=== PATIENT | female | born 1990 | race Hispanic/Latino ===

== ENCOUNTER → 2023-02-05 | Emergency (ER) | payer OTHER ==
[~2023-02-05] MED LIST: NA CHLORIDE 0.9% 1,000 ML ONE
[2023-02-05 19:22] LABS: Hematocrit 39.3 % (36.0-45.0); Lymphocytes % 20.9 % (15.3-44.8); MCV 87.5 fL (80-100); MPV 8.5 fL (7.6-11.3); Platelets 397 thou/uL (152-406); RBC Red Blood Cell Count 4.49 M/uL (3.86-4.86)
[2023-02-05 19:34] LABS: SARS-CoV-2 Antigen Rapid Res Negative (Negative)
--- NOTE | 2023-02-05 20:05 | RAD REPORT ---
EXAM DESCRIPTION: Yvon Single View02/05/2023 7:47 pm CLINICAL HISTORY: Chest pain COMPARISON: none FINDINGS: Mild bilateral pulmonary opacities Heart probably is normal size IMPRESSION: Mild bilateral pulmonary opacities may indicate pneumonia or pneumonitis
[2023-02-05 21:47] LABS: ALT/SGPT 57 U/L (13-56); AST/SGOT 31 U/L (15-37); Albumin 3.7 g/dL (3.4-5.0); Alkaline Phosphatase 59 U/L (45-117); BUN Blood Urea Nitrogen 13 mg/dL (7-18); Bicarbonate 27 mEq/L (21-32); Bilirubin Total 0.2 mg/dL (0.2-1.0); Glomerular Filtration Rate 102 ml/min (=/>90); Glucose Level 90 mg/dL (74-106); Magnesium 2.2 mg/dL (1.6-2.4); NT PRO-BNP 54 pg/mL (<125); Potassium 3.6 mEq/L (3.5-5.1); Sodium Level 138 mEq/L (136-145); Troponin High Sensitivity 3.4 pg/mL (<58.9)
[2023-02-05 21:55] LABS: Bilirubin Direct < 0.1 mg/dL (0-0.2); Bilirubin Indirect, Calculated ND mg/dL (0.2-0.8)
--- NOTE | 2023-02-05 22:11 | EDPHYS ---
Physician Documentation [facility] Name: Rosa Mcclure Age: 32 yrs Sex: Female : 1990 Arrival Date: 02/05/2023 Time: 18:13 Bed 8 Private MD: ED Physician Raghu Klein HPI: 02/05 18:43 This 32 yrs old Female presents to ER via Ambulatory with complaints of chest sb4 pain. 18:43 The patient or guardian reports chest pain that is located primarily in the anterior sb4 chest wall, bilaterally. The pain radiates to Associated signs and symptoms: Pertinent positives: dizziness, headache, shortness of breath. The chest pain is described as a pressure. Modifying factors: The symptoms are alleviated by nothing. the symptoms are aggravated by nothing. The patient has experienced a previous episode. The patient has not recently seen a physician. chest pain, sob, headache that began this morning. also endorses mild cough. had previous episode a few weeks ago, saw [place] [facility] and had echocardiogram but does not know the results. 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 - Social history:: Smoking status: Patient denies any tobacco usage or history of. ROS: 18:47 Constitutional: Negative for fever, chills, and weight loss, sb4 18:47 Cardiovascular: Positive for chest pain, 18:47 Respiratory: Positive for shortness of breath, 18:47 Neuro: Positive for headache, 18:47 All other systems are negative, Exam: 18:47 Constitutional: This is a well developed, well nourished patient who is awake, alert, sb4 and in no acute distress. Head/Face: Normocephalic, atraumatic. Eyes: Extra-ocular motions intact. Periorbital areas with no swelling, redness, or edema. ENT: Mucous membranes moist. Cardiovascular: Regular rate and rhythm with a normal S1 and S2. Respiratory: Lungs have equal breath sounds bilaterally, clear to auscultation and percussion. No rales, rhonchi or wheezes noted. No increased work of breathing, no retractions or nasal flaring. Abdomen/GI: Soft, non-tender, no distension. Skin: Warm, dry with normal turgor. Normal color with no rashes, no lesions, and no evidence of cellulitis. MS/ Extremity: Pulses equal, no cyanosis. Neurovascular intact. Full, normal range of motion. Neuro: Awake and alert, GCS 15, oriented to person, place, time, and situation. Motor strength 5/5 in all extremities. Sensory grossly intact. Vital Signs: 18:29 BP 150 / 79; Pulse 60; Resp 17; Temp 97; Pulse Ox 100% ; Weight 95.25 kg; Height 5 ft. jl7 3 in. ; Pain 7/10; 19:11 BP 121 / 80; Pulse 56; Resp 16 S; Pulse Ox 100% on R/A; jw7 20:21 BP 120 / 81; Pulse 63; Resp 16; Pulse Ox 96% on R/A; jb4 21:00 BP 111 / 52; Pulse 53; Resp 16; Pulse Ox 97% on R/A; jb4 22:31 BP 122 / 66; Pulse 56; Resp 16; Pulse Ox 100% on R/A; jb4 18:29 Body Mass Index 37.20 (95.25 kg, 160.02 cm) jl7 18:29 Pain Scale: Adult jl7 MDM: 18:20 Patient medically screened. sb4 18:47 Differential diagnosis: anxiety, chest wall pain, costochondritis, esophagitis, sb4 pleurisy, pneumonia, covid, flu, bronchitis, pneumonia. 21:56 Data reviewed: vital signs, nurses notes, lab test result(s), EKG, radiologic studies, sb4 and as a result, I will discharge patient. Consideration of Admission/Observation Escalation of care including admission/observation considered. Counseling: I had a detailed discussion with the patient and/or guardian regarding the historical points, exam findings, and any diagnostic results supporting the discharge/admit diagnosis, lab results, radiology results, the need for outpatient follow up, for definitive care, to return to the emergency department if symptoms worsen or persist or if there are any questions or concerns that arise at home. 02/05 18:32 Order name: Basic Metabolic Panel; Complete Time: 22:08 sb4 12/23 18:32 Order name: CBC with Diff; Complete Time: 19:39 sb4 02/05 18:32 Order name: D-Dimer; Complete Time: 19:25 sb4 02/05 18:32 Order name: LFT's; Complete Time: 22:08 sb4 02/05 18:32 Order name: Magnesium; Complete Time: 22:08 sb4 02/05 18:32 Order name: NT PRO-BNP; Complete Time: 22:08 sb4 02/05 18:32 Order name: Troponin HS; Complete Time: 22:08 sb4 02/05 18:32 Order name: SARS RAPID; Complete Time: 19:34 sb4 02/05 18:32 Order name: Flu; Complete Time: 19:40 sb4 02/05 19:14 Order name: Thyroid Stimulating Hormone; Complete Time: 22:08 EDMS 02/05 21:57 Order name: T4 Free; Complete Time: 22:08 EDMS 02/05 18:32 Order name: XRAY Chest (1 view); Complete Time: 20:11 sb4 02/05 18:32 Order name: EKG; Complete Time: 18:33 sb4 02/05 18:32 Order name: Cardiac monitoring; Complete Time: 19:08 sb4 02/05 18:32 Order name: EKG - Nurse/Tech; Complete Time: 19:21 sb4 02/05 18:32 Order name: IV Saline Lock; Complete Time: 19:22 sb4 02/05 18:32 Order name: Labs collected and sent; Complete Time: 19:09 sb4 02/05 18:32 Order name: O2 Per Protocol; Complete Time: 19:09 sb4 02/05 18:32 Order name: O2 Sat Monitoring; Complete Time: 19:09 sb4 02/05 19:22 Order name: Misc. Order: recollect green top; Complete Time: 20:03 jr12 EC:33 Rate is 61 beats/min. Rhythm is regular, Sinus arrythmia. QRS [place] is Normal. TN sb4 interval is normal at 142 msec. QRS interval is normal at 94 msec. QT interval is normal at 414 msec. No Q waves. T waves are Normal. No ST changes noted. Clinical impression: Normal ECG. Interpreted by me. Reviewed by me. Administered Medications: 21:55 Drug: NS 0.9% IV 1000 ml IV at 1 bolus Per protocol; 1000 mL bolus Route: IV; Rate: 1 jb4 bolus; Site: left antecubital; Disposition Summary: 02/05/23 22:10 Discharge Ordered Notes: Location: Home sb4 Problem: new sb4 Symptoms: have improved sb4 Condition: Stable sb4 Diagnosis - Pneumonia, unspecified organism sb4 - Elevated TSH sb4 Followup: sb4 - With: Yazan Sneed, DO - When: 2 - 3 days - Reason: Further diagnostic work-up, Recheck today's complaints, Re-evaluation by your physician Discharge Instructions: - Discharge Summary Sheet sb4 - Hypothyroidism sb4 - Community-Acquired Pneumonia, Adult sb4 Forms: - Medication Reconciliation Form sb4 - Thank You Letter sb4 - Antibiotic Education sb4 - Prescription Opioid Use sb4 - Patient Portal Instructions sb4 - Leadership Thank You Letter sb4 Prescriptions: - azithromycin 250 mg Oral tablet - take 1 dose pack ORAL route as directed on dose pack For 250 mg dose pack: take sb4 500 mg today (day 1), then 250 mg for 4 days (days 2-5); 1 Pack; Refills: 0, Product Selection Permitted - cefpodoxime 100 mg Oral Tablet - take 1 tablet ORAL route every 12 hours for 10 days take with food; 20 tablet; sb4 Refills: 0, Product Selection Permitted Signatures: Dispatcher [employer] Rich Simmons, RN RN [email or web address] Elis Blount RN RN [email or web address] Ruthie Hanna, PAShayan PAShayan sb4 Darlene, Ai jr12 Corrections: (The following items were deleted from the chart) 18:30 18:30 Allergies: No Known Allergies; melissa torres 19:14 18:47 THYROID STIMULAT HORMONE+C.LAB.BRZ ordered. EDMS EDMS
--- NOTE | 2023-02-05 22:11 | ER ---
Nurse's Notes [facility] Name: Rosa Mcclure Age: 32 yrs Sex: Female : 1990 Arrival Date: 02/05/2023 Time: 18:13 Bed 8 Private MD: Diagnosis: Pneumonia, unspecified organism;Elevated TSH Presentation: 02/05 18:29 Chief complaint: Patient states: CP, SOB, CONTE, since this morning. Happened 3 weeks ago, jl7 sees cardiology in [place], does not know results of tests. Coronavirus screen: At this time, the client does not indicate any symptoms associated with coronavirus-19. Ebola Screen: No symptoms or risks identified at this time. Initial Sepsis Screen: Does the patient meet any 2 criteria? No. Patient's initial sepsis screen is negative. Does the patient have a suspected source of infection? No. Patient's initial sepsis screen is negative. Risk Assessment: Do you want to hurt yourself or someone else? Patient reports no desire to harm self or others. Onset of symptoms was February 05, 2023. 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 - Social history:: Smoking status: Patient denies any tobacco usage or history of. Screenin:12 [facility] ED Fall Risk Assessment (Adult) History of falling in the last 3 months, 7 including since admission No falls in past 3 months (0 pts) Score/Fall Risk Level 0 - 2 = Low Risk Oriented to surroundings, Maintained a safe environment. Abuse screen: Denies threats or abuse. Denies injuries from another. Nutritional screening: No deficits noted. Tuberculosis screening: No symptoms or risk factors identified. Assessment: 19:09 General: Appears in no apparent distress. comfortable, Behavior is calm, cooperative. jw7 Pain: Complains of pain in chest Pain radiates to left arm Pain currently is 6 out of 10 on a pain scale. Quality of pain is described as pressure, Pain began suddenly, Is continuous. Neuro: Lopez Agitation-Sedation Scale (RASS): 0 - Alert and Calm Level of Consciousness is awake, alert, Oriented to person, place, time, situation. Cardiovascular: Capillary refill < 3 seconds Clubbing of nail beds is absent JVD is absent Patient's skin is warm and dry. Respiratory: Airway is patent Trachea midline Respiratory effort is even, unlabored, Respiratory pattern is regular, symmetrical. GI: No deficits noted. No signs and/or symptoms were reported involving the gastrointestinal system. : No deficits noted. No signs and/or symptoms were reported regarding the genitourinary system. EENT: No deficits noted. No signs and/or symptoms were reported regarding the EENT system. Derm: Skin is intact, is healthy with good turgor, Skin is dry, Skin is normal, Skin temperature is warm. Musculoskeletal: No deficits noted. No signs and/or symptoms reported regarding the musculoskeletal system. 20:08 Reassessment: Patient appears in no apparent distress at this time. Patient and/or jb4 family updated on plan of care and expected duration. Pain level reassessed. Patient is alert, oriented x 3, equal unlabored respirations, skin warm/dry/pink. 21:25 Reassessment: Patient appears in no apparent distress at this time. Patient and/or jb4 family updated on plan of care and expected duration. Pain level reassessed. Patient is alert, oriented x 3, equal unlabored respirations, skin warm/dry/pink. 22:31 Reassessment: Patient appears in no apparent distress at this time. Patient and/or jb4 family updated on plan of care and expected duration. Pain level reassessed. Patient is alert, oriented x 3, equal unlabored respirations, skin warm/dry/pink. Vital Signs: 18:29 BP 150 / 79; Pulse 60; Resp 17; Temp 97; Pulse Ox 100% ; Weight 95.25 kg; Height 5 ft. jl7 3 in. ; Pain 7/10; 19:11 BP 121 / 80; Pulse 56; Resp 16 S; Pulse Ox 100% on R/A; jw7 20:21 BP 120 / 81; Pulse 63; Resp 16; Pulse Ox 96% on R/A; jb4 21:00 BP 111 / 52; Pulse 53; Resp 16; Pulse Ox 97% on R/A; jb4 22:31 BP 122 / 66; Pulse 56; Resp 16; Pulse Ox 100% on R/A; jb4 18:29 Body Mass Index 37.20 (95.25 kg, 160.02 cm) jl7 18:29 Pain Scale: Adult jl7 ED Course: 18:16 Patient arrived in ED. im 18:20 Ruthie Hanna PA-C is PHCP. sb4 18:20 Raghu Klein MD is Attending Physician. sb4 18:30 Triage completed. jl7 18:30 Arm band placed on right wrist. EKG completed in triage. Results shown to MD. jl7 19:09 Initial lab(s) drawn, by me, sent to lab. Missed attempt(s): 22 gauge in right jw7 antecubital area. Bleeding controlled, band aid applied, catheter tip intact. 19:12 Patient has correct armband on for positive identification. Placed in gown. Bed in low jw7 position. Call light in reach. Client placed on continuous cardiac and pulse oximetry monitoring. NIBP monitoring applied. 19:12 Patient maintains SpO2 saturation greater than 95% on room air. jw7 19:49 XRAY Chest (1 view) In Process Unspecified. EDMS 19:55 Inserted saline lock: 20 gauge in left antecubital area, using aseptic technique. Blood oe collected. 22:10 Yazan Sneed DO is Referral Physician. sb4 22:31 No provider procedures requiring assistance completed. IV discontinued, intact, jb4 bleeding controlled, No redness/swelling at site. Pressure dressing applied. Administered Medications: 21:55 Drug: NS 0.9% IV 1000 ml IV at 1 bolus Per protocol; 1000 mL bolus Route: IV; Rate: 1 jb4 bolus; Site: left antecubital; Outcome: 22:10 Discharge ordered by MD. sb4 22:31 Discharged to home ambulatory, with family, jb4 22:31 Condition: stable 22:31 Discharge instructions given to patient, Instructed on discharge instructions, follow up and referral plans. medication usage, Demonstrated understanding of instructions, follow-up care, medications, Prescriptions given X 2, 22:33 Patient left the ED. jb4 Signatures: Dispatcher [employer] EDMS Rich Martinez, QUINCY RN jb4 James Saldaña Jahala, RN RN jl7 Mayuri Medina RN RN jw7 Ruthie Hanna PA-C PAShayan sb4 Noemi Rojas Corrections: (The following items were deleted from the chart) 18:30 18:30 Allergies: No Known Allergies; jl7 jl7
[2023-02-06 00:30] VITALS: TEMP 97; O2SAT 100
[2023-02-06 00:47] VITALS: BP 122/66
== END ==
LOC: ER 18:13
DX: J18.9 Pneumonia, unspecified organism (principal); R94.6 Abnormal results of thyroid function studies; Z11.52 Encounter for screening for COVID-19; Z88.0 Allergy status to penicillin
CPT/HCPCS: 85025; 80048; 36415; 83735; 85379; 80076; 84443; 84484; 84439; 83880; 87804 ×2; 71045; 99285; 87811; J7030; 93005

== ENCOUNTER 2024-03-09 21:23 | Emergency (ER) | payer OTHER, SELFPAY ==
--- OUTSIDE RECORDS SUMMARY | 2024-03-09 21:26 | XMS REPORT | Continuity of Care Document ---
Author Name Unknown Address [address] [facility] [address] [place] [address] [facility] thconnect Address [address] [facility] 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 Name Role Phone LETI PAULA Primary Care Physician Unavailab le RAF BOOTH Attending Clinician Unavailable Raf Booth MD Attending Clinician [phone] RAF BOOTH Admitting Clinician Unavailable Allergies, Adverse Reactions, Alerts Allergy Name Allergy Type Status Severity Reaction(s) Onset Date Inactive Date Treating Clinician Comments Source NO KNOWN ALLERGIE S Drug Class Active [facility] Social History Social Habit Start Date Stop Date Quantity Comments Source Sexual orientation [facility] Sex Assigned At 1990 00:00:00 1990 00:00:00 [facility] Smoking Status Start Date Stop Date Source Tobacco smoking consumption unknown [facility] Encounters Start Date/Time End Date/Time Encounter Type Admission Type Attending Clinicians Care Facility Care Department Encounter ID Source 2023-02-09 09:19:38 2023-02-09 09:19:38 Outpatient [facility] [id number] Robin F Alden 2023-02-08 14:05:29 2023-02-08 14:05:29 Outpatient [facility] [id number] Robin Payton Alden 2023-01-21 07:00:00 2023-01-21 23:59:00 Outpatient RAF WILSON [facility] [id number] [facility] 2023-01-21 07:00:00 2023-01-21 23:59:00 Hospital Encounter Raf Booth [facility] [id number] [facility] 2023-01-18 11:08:42 2023-01-18 11:08:42 Outpatient [facility] [id number] Robin Ruano Results Test Description Test Time Test Comments Results Result Co mments Source FREE T4 (THYROXINE)2023-02-10 05:32:29* Test Item Value Reference Range Interpretation Comme nts FREE T4 (THYROXINE) (test co de = 2823) 1.16 NG/DL 0.80-1.90 TSH, THIRD [id number] 05:32:29* Test Item Value Reference Range Interpretation Comme nts TSH, THIRD GENERATION (test code = 2821) 4.160 UIU/ML 0.400-4.100 H UNLESS OTHERWISE INDICATED, ALL TESTING PERFORMED AT [facility] [address] [place] [address] SENIOR COMPENSATION ANALYST: JOSE LUIS WILSON M.D. CLIA NUMBER [id number] [facility] [place]. [id number] HEMOGLOBIN [id number] 05:27:22* Test Item Value Reference Range Interpretation Comme nts HEMOGLOBIN A1c (test code = 94625) 5.2 % 4.2-5.6 LIPID [id number] 04:46:19* Test Item Value Reference Range Interpretation Comme nts CHOLESTEROL (test code = 2210) 175 MG/DL <200 TRIGLYCERIDES (test code = 2232) 84 MG/DL <150 HDL CHOLESTEROL (test code = 2220) 57 MG/DL >39 CALC LDL CHOL (test code = 2237) 101 MG/DL <100 H NOTE: CALCULATED LDL IS BASED ON CHRISTIANO-SOTO METHOD WHICHINCLUDES ADJUSTABLE TRIGLYCERIDE:VLDL CHOLESTEROL RATIO.THIS FACTOR VARIES BY MEASURED TRIGLYCERIDE AND NON-HDLCHOLESTEROL CONCENTRATIONS WITH INCREASED CALCULATED LDL SEENIN HIGHER TRIGLYCERIDE OR LOWER NON-HDL SPECIMENS. FOR MOREINFORMATION, SEE CLIENT ANNOUNCEMENT AT [email or web address] RISK RATIO LDL/HDL (test code = 2238) 1.77 RATIO <3.22 COMPREHENSIVE METABOLIC [id number] 04:46:19* Test Item Value Reference Range Interpretation Comme nts GLUCOSE (test code = 2216) 77 MG/DL 70-99 BUN (test code = 2207) 10 MG/DL 6-20 CREATININE (test code = 2213) 0.67 MG/DL 0.60-1.30 eGFR (2020 CKD-EPI) (test code = 64110) 118 ML/MIN/1.73 >60 CALC BUN/CREAT (test code = 2234) 15 RATIO 6-28 SODIUM (test code = 2230) 140 MEQ/L 133-146 POTASSIUM (test code = 2227) 4.8 MEQ/L 3.5-5.4 CHLORIDE (test code = 2214) 100 MEQ/L 95-107 CARBON DIOXIDE (test code = 2205) 28 MEQ/L 19-31 CALCIUM (test code = 2208) 10.5 MG/DL 8.5-10.5 PROTEIN, TOTAL (test code = 2228) 7.9 G/DL 6.1-8.3 ALBUMIN (test code = 2200) 4.5 G/DL 3.5-5.2 CALC GLOBULIN (test code = 2240) 3.4 G/DL 1.9-3.7 CALC A/G RATIO (test code = 2233) 1.3 RATIO 1.0-2.6 BILIRUBIN, TOTAL (test code = 2206) 0.3 MG/DL <=1.2 ALKALINE PHOSPHATASE (test code = 2203) 71 U/L 40-114 AST (test code = 2217) 19 U/L 9-40 ALT (test code = 221) 21 U/L 5-40 UNLESS OTHERWISE INDICATED, ALL TESTING PERFORMED AT [facility] [address] [place] [address] SENIOR COMPENSATION ANALYST: JOSE LUIS WILSON M.D. CLIA NUMBER [id number] [facility] [place]. [id number] CBC W/AUTO DIFF WITH [id number] 03:54:12* Test Item Value Reference Range Interpretation Comme nts WBC (test code = 1001) 7.0 K/UL 3.5-11.0 RBC (test code = 1002) 4.54 M/UL 3.80-5.40 HEMOGLOBIN (test code = 1003) 13.3 G/DL 11.5-15.5 HEMATOCRIT (test code = 1004) 40.2 % 34.0-45.0 MCV (test code = 1005) 88.5 fL 80.0-99.0 MCH (test code = 1006) 29.3 PG 25.0-33.0 MCHC (test code = 1007) 33.1 G/DL 31.0-36.0 RDW (test code = 1038) 12.4 % 11.5-15.0 NEUTROPHILS (test code = 1008) 64.3 % LYMPHOCYTES (test code = 1010) 28.1 % MONOCYTES (test code = 1011) 5.0 % EOSINOPHILS (test code = 1012) 1.9 % BASOPHILS (test code = 1013) 0.6 % IMMATURE GRANULOCYTES (test code = 1036) 0.1 % NUCLEATED RBCS (test code = 1065) 0.0 /100 WBC'S See_Comment [Automated [employer] ge] The system which generated this result transmitted reference range: 0.0. The reference range was not used to interpret this result as normal/abnormal. PLATELET COUNT (test code = 1015) 387 K/UL 130-400 ABSOLUTE NEUTROPHILS (test code = 1066) 4.50 K/UL 1.50-7.50 ABSOLUTE LYMPHOCYTES (test code = 1067) 1.97 K/UL 1.00-4.00 ABSOLUTE MONOCYTES (test code = 1068) 0.35 K/UL 0.20-1.00 ABSOLUTE EOSINOPHILS (test code = 1040) 0.13 K/UL 0.00-0.50 ABSOLUTE BASOPHILS (test code = 1069) 0.04 K/UL 0.00-0.20 ABS IMMATURE GRANULOCYTES (test code = 1020) 0.01 K/UL 0.00-0.10 ABS NUCLEATED RBCS (test code = 30564) 0.00 K/UL 0.00-0.11
--- NOTE | 2024-03-09 21:43 | EDPHYS ---
Physician Documentation [facility] Name: Rosa Mcclure Age: 34 yrs Sex: Female : 1990 Arrival Date: 03/09/2024 Time: 21:23 Bed IW3 Private MD: GARCIA Physician Raghu Klein HPI: 03/09 22:14 This 34 yrs old Female presents to ER via Ambulatory with complaints of Rash, kb Allergic Reaction. 22:14 Pt is a 34 year old female who presents for rash to bilateral upper extremities that kb started yesterday. States she isn't sure what the rash is from. Reports itching. . [employer] LAB[employer]ER: 21:34 LMP 02/2024, unknown cp4 Historical: - Allergies: 21:34 PENICILLINS; cp4 - Immunization history:: Adult Immunizations up to date. - Infectious Disease History:: Denies. - Social history:: Smoking status: Patient denies any tobacco usage or history of. ROS: 22:14 Constitutional: As per HPI kb Exam: 22:14 Constitutional: This is a well developed, well nourished patient who is awake, alert, kb and in no acute distress. Head/Face: Normocephalic, atraumatic. ENT: Moist Mucous membranes Cardiovascular: Regular rate Respiratory: Respirations even and unlabored. No increased work of breathing. Talking in full sentences MS/ Extremity: Pulses equal, no cyanosis. Neurovascular intact. Full, normal range of motion. Neuro: Awake and alert, GCS 15, oriented to person, place, time, and situation. 22:14 Skin: rash a mild rash is noted, consistent with contact dermatitis, on the right arm and left arm, Vital Signs: 21:34 BP 139 / 94; Pulse 62; Resp 18; Temp 97.5; Pulse Ox 100% ; Weight 86.18 kg; Height 5 cp4 ft. 5 in. ; Pain 0/10; 21:34 Body Mass Index 31.62 (86.18 kg, 165.1 cm) cp4 21:34 Pain Scale: Adult cp4 MDM: 21:27 Medical Screening Exam initiated kb 22:15 Differential diagnosis: impetigo, allergic reaction, parasite infection. Data reviewed: kb vital signs, nurses notes. Counseling: I had a detailed discussion with the patient and/or guardian regarding the historical points, exam findings, and any diagnostic results supporting the discharge/admit diagnosis, the need for outpatient follow up, a family practitioner, to return to the emergency department if symptoms worsen or persist or if there are any questions or concerns that arise at home. Administered Medications: 22:20 Drug: Famotidine PO 20 mg PO once Route: PO; cp4 22:35 Follow up: Response: No adverse reaction cp4 22:20 Drug: predniSONE PO 40 mg PO once Route: PO; cp4 22:35 Follow up: Response: No adverse reaction cp4 Disposition: 03/10 03:19 Co-signature as Attending Physician, Raghu Klein MD I agree with the assessment and kinjal plan of care. Disposition Summary: 03/09/24 21:43 Discharge Ordered Notes: Location: Home kb Condition: Stable kb Diagnosis - Rash and other nonspecific skin eruption kb Followup: kb - With: Emergency Department - When: As needed - Reason: Worsening of condition Followup: kb - With: Private Physician - When: 2 - 3 days - Reason: Recheck today's complaints, Continuance of care, Re-evaluation by your physician Discharge Instructions: - Discharge Summary Sheet kb - Rash, Adult, [id number] kb - Contact Dermatitis, [id number] kb Forms: - Medication Reconciliation Form kb - Antibiotic Education kb - Prescription Opioid Use kb - Patient Portal Instructions kb - Leadership Thank You Letter kb Prescriptions: - Pepcid 20 mg Oral Tablet - take 1 tablet ORAL route every 12 hours for 5 days; 10 tablet; Refills: 0, kb Product Selection Permitted - Prednisone 20 mg Oral Tablet - take 1 tablet ORAL route once daily for 5 days; 5 tablet; Refills: 0, Product kb Selection Permitted Signatures: Ligia Wilson, FRED ALBA-Raghu Macias MD MD cha Potter, Christina cp4
--- NOTE | 2024-03-09 21:43 | ER ---
Nurse's Notes [facility] Name: Rosa Mcclure Age: 34 yrs Sex: Female : 1990 Arrival Date: 03/09/2024 Time: 21:23 Bed IW3 Private MD: Diagnosis: Rash and other nonspecific skin eruption Presentation: 03/09 21:34 Chief complaint: Patient states: rash on arms that started yesterday. Coronavirus cp4 screen: Client denies travel out of the [place] in the last 14 days. Ebola Screen: Patient negative for fever greater than or equal to 101.5 degrees Fahrenheit, and additional compatible Ebola Virus Disease symptoms Patient denies exposure to infectious person. Patient denies travel to an Ebola-affected area in the 21 days before illness onset. No symptoms or risks identified at this time. Onset: The symptoms/episode began/occurred acutely. Anaphylaxis evaluation, no signs or symptoms of anaphylaxis were noted. Initial Sepsis Screen: Does the patient meet any 2 criteria? No. Patient's initial sepsis screen is negative. Does the patient have a suspected source of infection? No. Patient's initial sepsis screen is negative. Risk Assessment: Do you want to hurt yourself or someone else? Patient reports no desire to harm self or others. Onset of symptoms was March 08, 2023. 21:34 Method Of Arrival: Ambulatory cp4 21:34 Acuity: NIC 5 cp4 Triage Assessment: 21:34 General: Appears in no apparent distress. Behavior is calm, cooperative, appropriate cp4 for age. Pain: Denies pain. [facility]: 21:34 LMP 02/2024, unknown cp4 Historical: - Allergies: 21:34 PENICILLINS; cp4 - Immunization history:: Adult Immunizations up to date. - Infectious Disease History:: Denies. - Social history:: Smoking status: Patient denies any tobacco usage or history of. Screenin:32 [facility] ED Fall Risk Assessment (Adult) History of falling in the last 3 months, cp4 including since admission No falls in past 3 months (0 pts) Confusion or Disorientation No (0 pts) Intoxicated or Sedated No (0 pts) Impaired Gait No (0 pts) Mobility Assist Device Used No (0 pt) Altered Elimination No (0 pt) Score/Fall Risk Level 0 - 2 = Low Risk Oriented to surroundings, Maintained a safe environment, Assessed \T\ reinforced patient's understanding of fall precautions, Hourly rounding (assess needs \T\ fall precautionary measures) done. Abuse screen: Denies threats or abuse. Denies injuries from another. Nutritional screening: No deficits noted. Tuberculosis screening: No symptoms or risk factors identified. Assessment: 22:32 General: Appears in no apparent distress. comfortable, Behavior is calm, cooperative, cp4 appropriate for age. Pain: Denies pain. Neuro: Level of Consciousness is awake, alert, obeys commands, Oriented to person, place, time, situation. Cardiovascular: Patient's skin is warm and dry. Respiratory: Airway is patent Respiratory effort is even, unlabored, Breath sounds are clear bilaterally. GI: No signs and/or symptoms were reported involving the gastrointestinal system. : No signs and/or symptoms were reported regarding the genitourinary system. EENT: No signs and/or symptoms were reported regarding the EENT system. Derm: No signs and/or symptoms reported regarding the dermatologic system. Musculoskeletal: No signs and/or symptoms reported regarding the musculoskeletal system. Vital Signs: 21:34 BP 139 / 94; Pulse 62; Resp 18; Temp 97.5; Pulse Ox 100% ; Weight 86.18 kg; Height 5 cp4 ft. 5 in. ; Pain 0/10; 21:34 Body Mass Index 31.62 (86.18 kg, 165.1 cm) cp4 21:34 Pain Scale: Adult cp4 ED Course: 21:25 Patient arrived in ED. am2 21:27 [facility]C [facility] kb 21:27 Raghu Klein MD is Attending Physician. kb 21:34 Triage completed. cp4 22:32 Patient has correct armband on for positive identification. Provided Education on: rash.cp4 22:32 No provider procedures requiring assistance completed. Patient did not have IV access cp4 during this emergency room visit. 22:35 Arm band placed on right wrist. Patient placed in waiting room. cp4 Administered Medications: 22:20 Drug: Famotidine PO 20 mg PO once Route: PO; cp4 22:35 Follow up: Response: No adverse reaction cp4 22:20 Drug: predniSONE PO 40 mg PO once Route: PO; cp4 22:35 Follow up: Response: No adverse reaction cp4 Medication: 22:32 VIS not applicable for this client. cp4 Outcome: 21:43 Discharge ordered by . noel 22:32 Discharged to home ambulatory, cp4 22:32 Condition: stable 22:32 Discharge instructions given to patient, Instructed on discharge instructions, follow up and referral plans. medication usage, Demonstrated understanding of instructions, follow-up care, medications, Prescriptions given X 2, 22:35 Patient left the ED. cp4 Signatures: Ligia Wilson, PARTH-C SALES DEVELOPMENT CONSULTANT-Rosanne Pickett Christina cp4
[2024-03-09] MEDS ORDERED: predniSONE 20 MG TAB ONE ×2 (22:16→22:17)
[2024-03-09] MEDS ORDERED: FAMOTIDINE 20 MG TAB ONE (22:17)
[2024-03-10 02:48] VITALS: BP 139/94; TEMP 97.5; O2SAT 100
== END 2024-03-09 22:35 | disposition home or self-care (01) ==
LOC: ER 21:23
DX: R21 Rash and other nonspecific skin eruption (principal)
CPT/HCPCS: 99283; J7512 ×2

== ENCOUNTER 2024-04-08 20:23 | Emergency (ER) | payer SELFPAY ==
--- OUTSIDE RECORDS SUMMARY | 2024-04-08 20:26 | XMS REPORT | Continuity of Care Document ---
Author Name Unknown Address [address] [facility] [address] [place] [address] [facility] Address [address] [facility] [address] [place] [address] Care Team Providers Care Heat Seal Operator Name Role Phone LETI PAULA Primary Care Physician Unavailab le RAF BOOTH Attending Clinician Unavailable Raf Booth MD Attending Clinician [phone] RAF BOOTH Admitting Clinician Unavailable Allergies, Adverse Reactions, Alerts Allergy Name Allergy Type Status Severity Reaction(s) Onset Date Inactive Date Treating Clinician Comments Source NO KNOWN ALLERGIE S Drug Class Active [facility] Social History Social Habit Start Date Stop Date Quantity Comments Source Sexual orientation U [facility] Sex Assigned At 1990 00:00:00 1990 00:[birth year]:00 [facility] Smoking Status Start Date Stop Date Source Tobacco smoking consumption unknown [facility] Encounters Start Date/Time End Date/Time Encounter Type Admission Type Attending Clinicians Care Facility Care Department Encounter ID Source 2023-02-09 09:19:38 2023-02-09 09:19:38 Outpatient SFA SFA [id number] Robin F Alden 2023-02-08 14:05:29 2023-02-08 14:05:29 Outpatient SFA SFA [id number] Robin Payton Alden 2023-01-21 07:00:00 2023-01-21 23:59:00 Outpatient RAF WILSON [facility] [id number] [facility] 2023-01-21 07:00:00 2023-01-21 23:59:00 Hospital Encounter Raf Booth [facility] [id number] [facility] 2023-01-18 11:08:42 2023-01-18 11:08:42 Outpatient S[facility] [id number] Robin Ruano Results Test Description Test Time Test Comments Results Result Co mments Source FREE T4 (THYROXINE)2023-02-10 05:32:29* Test Item Value Reference Range Interpretation Comme nts FREE T4 (THYROXINE) (test co de = 2823) 1.16 NG/DL 0.80-1.90 TSH, THIRD [id number] 05:32:29* Test Item Value Reference Range Interpretation Comme nts TSH, THIRD GENERATION (test code = 2821) 4.160 UIU/ML 0.400-4.100 H UNLESS OTHERWISE INDICATED, ALL TESTING PERFORMED AT [facility] [address] [place] [address] REGIONAL DIRECTOR OF FINANCE: JOSE LUIS WILSON M.D. CLIA NUMBER [id number] [place]. [id number] HEMOGLOBIN [id number] 05:27:22* Test Item Value Reference Range Interpretation Comme nts HEMOGLOBIN A1c (test code = 63073) 5.2 % 4.2-5.6 LIPID [id number] 04:46:19* Test Item Value Reference Range Interpretation [...] SPECIMENS. FOR MOREINFORMATION, SEE CLIENT ANNOUNCEMENT AT [email or web address] [email or web address] RATIO LDL/HDL (test code = 2238) 1.77 RATIO <3.22 COMPREHENSIVE METABOLIC [id number] 04:46:19* Test Item Value Reference Range Interpretation Comme nts GLUCOSE (test code = 2216) 77 MG/DL 70-99 BUN (test code = 2207) 10 MG/DL 6-20 CREATININE (test code = 2213) 0.67 MG/DL 0.60-1.30 eGFR (2020 CKD-EPI) (test code = 24594) 118 ML/MIN/1.73 >60 CALC BUN/CREAT (test code [...] TESTING PERFORMED AT [facility] [address] [place] [address] REGIONAL DIRECTOR OF FINANCE: JOSE LUIS WILSON M.D. CLIA NUMBER [id number] [place]. [id number] CBC W/AUTO DIFF WITH [id number] 03:54:12* Test Item Value Reference Range Interpretation [...] = 1065) 0.0 /100 WBC'S See_Comment [Automated MedPlastsa ge] The system which generated this result [...] 0.00-0.10 ABS NUCLEATED RBCS (test code = 18225) 0.00 K/UL 0.00-0.11
[2024-04-08 21:16] LABS: Influenza A Ag Negative; Influenza B Ag Negative
[2024-04-08 21:18] LABS: SARS-CoV-2 Antigen Rapid Res Positive (Negative)
--- NOTE | 2024-04-08 21:42 | RAD REPORT ---
Procedure: Chest Pa And Lat (2 Views) HISTORY: Cough COMPARISON: 2022 FINDINGS: The lungs appear clear of acute infiltrate. No significant pleural effusion noted. The heart is normal size. IMPRESSION: No acute abnormality is displayed.
--- NOTE | 2024-04-08 22:20 | EDPHYS ---
Physician Documentation [facility] Name: Rosa Mcclure Age: 34 yrs Sex: Female : 1990 Arrival Date: 04/08/2024 Time: 20:23 Bed 14 Private MD: ED Physician Balaji Sneed HPI: 04/08 22:58 This 34 yrs old Female presents to ER via Ambulatory with complaints of Flu sb4 Symptoms. 22:58 cough, congestion, sore throat, body aches, fever x 4 days. has been taking tylenol and sb4 nyquil with some relief in symptoms. no shortness of breath, nausea, vomiting, diarrhea, chest pain. 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 - Infectious Disease History:: Denies. - Social history:: Smoking status: Patient/guardian denies using tobacco. ROS: 22:58 Abdomen/GI: Negative for abdominal pain, nausea, vomiting, diarrhea, and constipation, sb4 22:58 Constitutional: Positive for body aches, chills, fatigue, fever, malaise, 22:58 ENT: Positive for sinus congestion, sore throat, 22:58 Respiratory: Positive for cough, 22:58 All other systems are negative, Exam: 22:58 Constitutional: This is a well developed, well nourished patient who is awake, alert, sb4 and in no acute distress. Head/Face: Normocephalic, atraumatic. Eyes: Extra-ocular motions intact. Periorbital areas with no swelling, redness, or edema. ENT: Mucous membranes moist. Cardiovascular: Regular rate and rhythm with a normal S1 and S2. Respiratory: No increased work of breathing, no retractions or nasal flaring. Abdomen/GI: Soft, non-tender, no distension. Skin: Warm, dry with normal turgor. Normal color with no rashes, no lesions, and no evidence of cellulitis. MS/ Extremity: Pulses equal, no cyanosis. Neurovascular intact. Full, normal range of motion. Neuro: Awake and alert, GCS 15, oriented to person, place, time, and situation. Motor strength 5/5 in all extremities. Sensory grossly intact. 22:58 Respiratory: Breath sounds: are clear throughout, Vital Signs: 20:28 BP 122 / 85; Pulse 99; Resp 18; Temp 98.4; Pulse Ox 99% ; iw 21:18 BP 136 / 61; Pulse 91; Resp 20; Pulse Ox 97% on R/A; kj2 22:26 BP 136 / 72; Pulse 88; Resp 20; Pulse Ox 100% on R/A; kj2 MDM: 20:27 Medical Screening Exam initiated sb4 23:00 Data reviewed: vital signs, nurses notes, lab test result(s), radiologic studies, and sb4 as a result, I will discharge patient. Counseling: I had a detailed discussion with the patient and/or guardian regarding the historical points, exam findings, and any diagnostic results supporting the discharge/admit diagnosis, the presence of at least one elevated blood pressure reading (>120/80) during this emergency department visit, lab results, radiology results, the need for outpatient follow up, for definitive care, to return to the emergency department if symptoms worsen or persist or if there are any questions or concerns that arise at home. 04/08 20:32 Order name: COVID-19 Ag + Flu A+B Ag; Complete Time: 21:19 sb4 04/08 21:05 Order name: Group A Streptococcus Rapid Sc; Complete Time: 22:06 EDFL 04/08 22:04 Order name: Throat Culture EDFL 04/08 20:36 Order name: Chest Pa And Lat (2 Views) XRAY; Complete Time: 21:44 sb4 Administered Medications: No medications were administered Disposition Summary: 04/08/24 22:19 Discharge Ordered Notes: Location: Home sb4 Problem: an ongoing problem sb4 Symptoms: are unchanged sb4 Condition: Stable sb4 Diagnosis - SARS-associated coronavirus as the cause of diseases classified elsewhere sb4 Followup: sb4 - With: Emergency Department - When: As needed - Reason: Trouble breathing, Worsening of condition Discharge Instructions: - Discharge Summary Sheet sb4 - 10 Things You Can Do to Manage Your COVID-19 Symptoms at Home - [facility] (08/29/2020) sb4 Forms: - Work release form sb4 - Patient Portal Instructions sb4 - Leadership Thank You Letter sb4 Signatures: Dispatcher [employer] EDNatasha Whitmore, RN RN Ruthie Bowden, NATY PAShayan sb4 Corrections: (The following items were deleted from the chart) 21:05 20:32 Group A Streptococcus Rapid [id number].BRZ ordered. ED EDMS
--- NOTE | 2024-04-08 22:20 | ER ---
Nurse's Notes [facility] Name: Rosa Mcclure Age: 34 yrs Sex: Female : 1990 Arrival Date: 04/08/2024 Time: 20:23 Bed 14 Private MD: Diagnosis: SARS-associated coronavirus as the cause of diseases classified elsewhere Presentation: 04/08 20:28 Chief complaint: Patient states: 4 days of body aches, fever, headache, cough. iw Coronavirus screen: Client presents with at least one sign or symptom that may indicate coronavirus-19. Ebola Screen: No symptoms or risks identified at this time. Initial Sepsis Screen: Does the patient meet any 2 criteria? No. Patient's initial sepsis screen is negative. Does the patient have a suspected source of infection? No. Patient's initial sepsis screen is negative. Risk Assessment: Do you want to hurt yourself or someone else? Patient reports no desire to harm self or others. Onset of symptoms was April 04, 2024. 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 - Infectious Disease History:: Denies. - Social history:: Smoking status: Patient/guardian denies using tobacco. Screenin:52 [facility] ED Fall Risk Assessment (Adult) History of falling in the last 3 months, iw including since admission No falls in past 3 months (0 pts) Confusion or Disorientation No (0 pts) Intoxicated or Sedated No (0 pts) Impaired Gait No (0 pts) Mobility Assist Device Used No (0 pt) Altered Elimination No (0 pt) Score/Fall Risk Level 0 - 2 = Low Risk Oriented to surroundings, Maintained a safe environment. Abuse screen: Denies threats or abuse. Denies injuries from another. Nutritional screening: No deficits noted. Tuberculosis screening: No symptoms or risk factors identified. Assessment: 20:51 General: Appears in no apparent distress. Behavior is calm, cooperative, appropriate iw for age. General: Reports fever for > 3 days. Pain: Complains of pain in all over body and head. Neuro: Level of Consciousness is awake, alert, obeys commands, Oriented to person, place, time, situation, Moves all extremities. Cardiovascular: Patient's skin is warm and dry. Respiratory: Respiratory effort is even, unlabored, Respiratory pattern is regular, symmetrical. Derm: Skin is intact, is healthy with good turgor. Musculoskeletal: Range of motion: intact in all extremities. 21:19 Reassessment: Patient appears in no apparent distress at this time. Patient and/or kj2 family updated on plan of care and expected duration. Pain level reassessed. Patient is alert, oriented x 3, equal unlabored respirations, skin warm/dry/pink. 22:26 Reassessment: Patient appears in no apparent distress at this time. Patient and/or kj2 family updated on plan of care and expected duration. Pain level reassessed. Patient is alert, oriented x 3, equal unlabored respirations, skin warm/dry/pink. Vital Signs: 20:28 BP 122 / 85; Pulse 99; Resp 18; Temp 98.4; Pulse Ox 99% ; iw 21:18 BP 136 / 61; Pulse 91; Resp 20; Pulse Ox 97% on R/A; kj2 22:26 BP 136 / 72; Pulse 88; Resp 20; Pulse Ox 100% on R/A; kj2 ED Course: 20:25 Patient arrived in ED. jj6 20:26 Ruthie Hanna PA-C is PHCP. sb4 20:26 Balaji Sneed MD is Attending Physician. sb4 20:29 Triage completed. iw 20:30 Arm band placed on. iw 21:09 Lorenza Rollins, RN is Primary Nurse. kj2 21:19 Patient has correct armband on for positive identification. Bed in low position. Call kj2 light in reach. Provided Education on: call light. 21:29 Chest Pa And Lat (2 Views) XRAY In Process Unspecified. EDMS 22:48 No provider procedures requiring assistance completed. Patient did not have IV access kj2 during this emergency room visit. Administered Medications: No medications were administered Medication: 20:52 VIS not applicable for this client. iw Outcome: 22:19 Discharge ordered by . sb4 22:48 Discharged to home ambulatory, kj2 22:48 Condition: stable 22:48 Discharge instructions given to patient, Instructed on discharge instructions, follow up and referral plans. Demonstrated understanding of instructions, follow-up care, 22:52 Patient left the ED. kj2 Signatures: Dispatcher [employer] Natasha Jackson, RN RN Yvette Lopez jj6 Ruthie Hanna, PAHemalathaC PAHemalathaC [email or web address] Lorenza Rollins, RN RN kj2 Corrections: (The following items were deleted from the chart) 20:30 20:28 Resp 18bpm; Pulse Ox 99%; Temp 98.4F; oscar moore
[2024-04-08 23:01] VITALS: TEMP 98.4
[2024-04-08 23:05] VITALS: BP 136/72; O2SAT 100
== END 2024-04-08 22:52 | disposition home or self-care (01) ==
LOC: ER 20:23
DX: U07.1 COVID-19 (principal)
CPT/HCPCS: 36415; 71046; 87070; 87428; 99283

== ENCOUNTER 2024-06-17 12:35 | Emergency (ER) | payer OTHER ==
--- OUTSIDE RECORDS SUMMARY | 2024-06-17 12:41 | XMS REPORT | Continuity of Care Document ---
Author Name Unknown Address [address] [facility] [place] [address] Organization [facility] [place] Address [address] [facility]. [address] [place] [address] Care Team Providers Care Floral Assistant Name Role Phone LETIMAYRAFredy Primary Care Physician Unavailab le RAF BOOTH Attending Clinician Unavailable Raf Booth MD Attending Clinician [phone] RAF BOOTH Admitting Clinician Unavailable Allergies, Adverse Reactions, Alerts Allergy Name Allergy Type Status Severity Reaction(s) Onset Date Inactive Date Treating Clinician Comments Source NO KNOWN ALLERGIE S Drug Class Active [facility] Social History Social Habit Start Date Stop Date Quantity Comments Source Sexual orientation U [facility] Sex Assigned At 1990 00:00:00 1990 00:[birth year]:00 [facility] Smoking Status Start Date Stop Date Source Tobacco smoking consumption unknown [facility] Encounters Start Date/Time End Date/Time Encounter Type Admission Type Attending Clinicians Care Facility Care Department Encounter ID Source 2023-02-09 09:19:38 2023-02-09 09:19:38 Outpatient SFA SFA [id number] Robin F Alden 2023-02-08 14:05:29 2023-02-08 14:05:29 Outpatient SFA SFA [id number] Robin Payton Alden 2023-01-21 07:00:00 2023-01-21 23:59:00 Outpatient RAF WILSON [facility] [id number] [facility] 2023-01-21 07:00:00 2023-01-21 23:59:00 Hospital Encounter Raf Booth [facility] [id number] [facility] 2023-01-18 11:08:42 2023-01-18 11:08:[address] [facility] [id number] Robin Ruano Results Test Description Test Time Test Comments Results Result Co mments Source FREE T4 (THYROXINE)2023-02-10 05:32:29* Test Item Value Reference Range Interpretation Comme nts FREE T4 (THYROXINE) (test co de = 2823) 1.16 NG/DL 0.80-1.90 TSH, THIRD [id number] 05:32:29* Test Item Value Reference Range Interpretation Comme nts TSH, THIRD GENERATION (test code = 2821) 4.160 UIU/ML 0.400-4.100 H UNLESS OTHERWISE INDICATED, ALL TESTING PERFORMED AT [facility] [address] [place] [address] PAINT LABORATORY TECHNICIAN: JOSE LUIS WILSON M.D. CLIA NUMBER [id number] [facility] [place]. [id number] HEMOGLOBIN [id number] 05:27:22* Test Item Value Reference Range Interpretation Comme nts HEMOGLOBIN A1c (test code = 58679) 5.2 % 4.2-5.6 LIPID [id number] 04:46:19* Test Item Value Reference Range Interpretation [...] SPECIMENS. FOR MOREINFORMATION, SEE CLIENT ANNOUNCEMENT AT [email or web address] [email or web address] RATIO LDL/HDL (test code = 2238) 1.77 RATIO <3.22 COMPREHENSIVE METABOLIC [id number] 04:46:19* Test Item Value Reference Range Interpretation Comme nts GLUCOSE (test code = 2216) 77 MG/DL 70-99 BUN (test code = 2207) 10 MG/DL 6-20 CREATININE (test code = 2213) 0.67 MG/DL 0.60-1.30 eGFR (2020 CKD-EPI) (test code = 88169) 118 ML/MIN/1.73 >60 CALC BUN/CREAT (test code = 2234) 15 RATIO 6-28 SODIUM (test code = 2230) 140 MEQ/L 133-146 POTASSIUM (test code = 2228) 4.8 MEQ/L 3.5-5.4 CHLORIDE (test code = 2214) 100 MEQ/L 95-107 CARBON DIOXIDE (test code = 6) 28 MEQ/L 19-31 CALCIUM (test code = [...] TESTING PERFORMED AT [facility] [address] [place] [address] PAINT LABORATORY TECHNICIAN: JOSE LUIS WILSON M.D. CLIA NUMBER [id number] [facility] [place] [place]. [id number] CBC W/AUTO DIFF WITH [id number] 03:54:12* Test Item Value Reference Range Interpretation [...] = 1065) 0.0 /100 WBC'S See_Comment [Automated iikoa ge] The system which generated this result [...] 0.00-0.10 ABS NUCLEATED RBCS (test code = 70812) 0.00 K/UL 0.00-0.11
[2024-06-17] MEDS ORDERED: NA CHLORIDE 0.9% 1,000 ML ONE (13:05)
[2024-06-17 13:11] LABS: Absolute Eosinophils 0.1 K/uL (0-0.5); Absolute Monocytes 0.4 K/uL (0.1-1.3); Absolute Neutrophil 4.4 K/uL (1.8-8.0); Basophils % 0.7 % (0-1.3); Eosinophils % 1.1 % (0-4.4); Hemoglobin 13.4 g/dL (12.0-15.0); Lymphocytes % 28.7 % (15.3-44.8); MCH 29.8 pg (27.0-35.0); MCHC 34.4 g/dL (32.0-36.0); MCV 86.6 fL (80-100); MPV 8.3 fL (7.6-11.3); Monocytes % 5.6 % (3.3-12.3); Neutrophils % 63.9 % (41.7-73.7); Nucleated Red Blood Cells % 0.1 % (0-0); Platelets 398 thou/uL (152-406); Red Cell Distribution Width 13.4 % (12.1-15.2)
[2024-06-17 13:25] LABS: PT Prothrombin Time 12.2 SECONDS (10-13.0); Protime INR 1.07
[2024-06-17 13:28] LABS: Specific Gravity 1.019 (1.005-1.030)
[2024-06-17 13:29] LABS: Specific Gravity 1.019 (1.005-1.030); Sqamous Epithelial <5 /HPF (None Seen); Urine Bacteria <20 /HPF (<20); Urine Bilirubin NEGATIVE (Negative); Urine Blood Negative (Negative); Urine Clarity Clear (Clear); Urine Color Light-Yellow (Yellow); Urine Crystals Unidentified Few /HPF (None Seen); Urine Culture Reflex Order REFLEXED; Urine Glucose NEGATIVE (Negative); Urine Ketones NEGATIVE (Negative); Urine Microscopic Reflex YN ORDER UMIC; Urine Mucus Slight /HPF (None Seen); Urine Nitrite NEGATIVE (Negative); Urine Protein NEGATIVE (Negative); Urine RBC <5 /HPF (None Seen); Urine Urobilinogen Normal (Normal); Urine Yeast (Budding) Trace /HPF (None Seen); Urine pH 7.5 (5.0-7.0)
[2024-06-17 13:30] LABS: ALT/SGPT 33 U/L (13-56); AST/SGOT 13 U/L (15-37); Albumin 3.6 g/dL (3.4-5.0); Albumin/Globulin Ratio 0.9 (1.1-1.8); Alkaline Phosphatase 62 U/L (45-117); Anion Gap 8.9 mEq/L (5.0-15.0); BUN Blood Urea Nitrogen 12 mg/dL (7-18); Bicarbonate 27 mEq/L (21-32); Bilirubin Total 0.2 mg/dL (0.2-1.0); C-Reactive Protein 6.82 mg/L (<3.00); Globulin 4.1 g/dL (2.3-3.5); Glomerular Filtration Rate 118 ml/min (=/>90); Glucose Level 89 mg/dL (74-106); Magnesium 1.9 mg/dL (1.6-2.4); NT PRO-BNP 50 pg/mL (<125); Potassium 3.9 mEq/L (3.5-5.1); Protein, Total 7.7 g/dL (6.4-8.2); Sodium Level 137 mEq/L (136-145)
[2024-06-17 13:31] LABS: Bilirubin Direct < 0.2 mg/dL (0-0.2); Troponin High Sensitivity < 3.0 pg/mL (<58.9)
[2024-06-17 13:35] LABS: D-Dimer < 0.215 FEUug/mL (0-0.500)
--- NOTE | 2024-06-17 13:35 | RAD REPORT ---
EXAM: CT brain without contrast HISTORY: DIZZINESS COMPARISON: None TECHNIQUE: Multiple contiguous axial images were obtained and a CT of the brain without contrast. Sag ittal and coronal reformats were performed. One or more of the following dose reduction techniques were used: Automated exposure control, adjust ment of the mA and/or kV according to patient size, and/or iterative reconstruction. FINDINGS: No evidence of hydrocephalus, intracranial hemorrhage, or extra-axial fluid collection. The brain is normal in morphology. No evidence of midline shift or areas of brain edema. The calvarium is intact. The visualized paranasal sinuses and mastoid air cells are essentially clear . IMPRESSION: No evidence of acute intracranial abnormality.
--- NOTE | 2024-06-17 14:23 | ER ---
Nurse's Notes [facility] Name: Rosa Mcclure Age: 34 yrs Sex: Female : 1990 Arrival Date: 06/17/2024 Time: 12:35 Bed 6 Private MD: Diagnosis: Headache;Paresthesia of skin;Bradycardia, unspecified;UTI/ Urinary tract infection, site not specified Presentation: 06/17 12:48 Chief complaint: Patient states: Left sided Headache that has been intermittent over cm10 the last few days. Pt reports tingling to face, tremors to bilateral hands and reports having intermittent left sided chest heaviness. Coronavirus screen: Client denies travel out of the [place] in the last 14 days. Ebola Screen: Patient denies travel to an Ebola-affected area in the 21 days before illness onset. Initial Sepsis Screen: Does the patient meet any 2 criteria? No. Patient's initial sepsis screen is negative. Does the patient have a suspected source of infection? No. Patient's initial sepsis screen is negative. Risk Assessment: Do you want to hurt yourself or someone else? Patient reports no desire to harm self or others. Onset of symptoms was June 17, 2024. 12:48 Method Of Arrival: Ambulatory cm10 12:48 Acuity: NIC 3 cm10 Triage Assessment: 12:50 Headache History: Denies prior headaches. General: Appears in no apparent distress. cm10 comfortable, Behavior is calm, cooperative, appropriate for age. Pain: Complains of pain in left temporal area Pain currently is 9 out of 10 on a pain scale. Quality of pain is described as Cold sensation Pain began 2-3 days ago. Also complains of no other associated symptoms. Neuro: No deficits noted. Level of Consciousness is awake, alert, obeys commands, Oriented to person, place, time, situation, Appropriate for age [employer] Hands are equal bilaterally Moves all extremities. Gait is steady, Speech is normal, paresthesias in face Reports headache in left. Cardiovascular: Patient's skin is warm and dry. Respiratory: No deficits noted. Airway is patent Respiratory effort is even, unlabored, Respiratory pattern is regular, symmetrical. 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 - Infectious Disease History:: Denies. - Social history:: Smoking status: Patient denies any tobacco usage or history of. - Family history:: not pertinent. Screenin:[address] [facility] ED Fall Risk Assessment (Adult) History of falling in the last 3 months, cm10 including since admission No falls in past 3 months (0 pts) Confusion or Disorientation No (0 pts) Intoxicated or Sedated No (0 pts) Impaired Gait No (0 pts) Mobility Assist Device Used No (0 pt) Altered Elimination No (0 pt) Score/Fall Risk Level 0 - 2 = Low Risk Oriented to surroundings, Maintained a safe environment, Hourly rounding (assess needs \T\ fall precautionary measures) done. Abuse screen: Denies threats or abuse. Denies injuries from another. Nutritional screening: No deficits noted. Tuberculosis screening: No symptoms or risk factors identified. Assessment: 14:38 Reassessment: Patient appears in no apparent distress at this time. Patient and/or cm10 family updated on plan of care and expected duration. Pain level reassessed. Patient is alert, oriented x 3, equal unlabored respirations, skin warm/dry/pink. Vital Signs: 12:48 BP 148 / 71; Pulse 66; Resp 16; Temp 97.8; Pulse Ox 100% on R/A; Weight 81.65 kg; cm10 Height 5 ft. 3 in. ; Pain 9/10; 14:38 BP 104 / 66; Pulse 54; Resp 15; Pulse Ox 100% ; cm10 15:00 BP 113 / 70; Pulse 48; Resp 15; Pulse Ox 100% ; cm10 12:48 Body Mass Index 31.89 (81.65 kg, 160.02 cm) cm10 12:48 Pain Scale: Adult cm10 Vitals: 13:21 Cardiac Rhythm Assessment Sinus marianna. cm10 [place] Coma Score: 13:12 Eye Response: spontaneous(4). Motor Response: obeys commands(6). Verbal Response: kinjal oriented(5). Total: 15. NIH Stroke Scale Scores: 13:08 NIHSS Score: 0 kinjal ED Course: 12:39 Patient arrived in ED. al6 12:42 Felisa Hawthorne, RN is Primary Nurse. mb9 12:42 Arm band placed on. mb9 12:46 Raghu Klein MD is Attending Physician. kinjal 12:47 Yany Urena, RN is Primary Nurse. cm10 12:49 Triage completed. cm10 12:51 Initial lab(s) drawn, by me, sent to lab. Inserted saline lock: 20 gauge in right mb9 antecubital area, using aseptic technique. Blood collected. Flushed with 10 mL NS. 12:52 Patient has correct armband on for positive identification. Placed in gown. Bed in low cm10 position. Call light in reach. Side rails up X2. Client placed on continuous cardiac and pulse oximetry monitoring. NIBP monitoring applied. cardiac monitor on. 13:21 PREGU Sent. cm10 13:21 UA Rfx Jim Cult if indicated Sent. cm10 13:21 EKG done, by ED staff, reviewed by Raghu Klein MD. cm10 13:30 CT Head Brain wo Cont In Process Unspecified. EDMS 13:46 US Carotid Artery Bilateral In Process Unspecified. EDMS 14:22 Jaime Olson MD is Referral Physician. [facility] 14:23 XRAY Chest (1 view) In Process Unspecified. EDMS 15:34 No provider procedures requiring assistance completed. IV discontinued, intact, cm10 bleeding controlled, No redness/swelling at site. Pressure dressing applied. 15:35 Provided Education on: Follow-up instructions. cm10 Administered Medications: 13:21 Drug: NS 0.9% IV 1000 ml IV at 1 bolus Per protocol; to be given as a bolus over 60 cm10 minutes Route: IV; Rate: 1 bolus; Site: right antecubital; 15:33 Follow up: Response: No adverse reaction; IV Status: Completed infusion; IV Intake: cm10 1000ml 14:35 Drug: Ciprofloxacin PO 500 mg PO once Route: PO; cm10 15:33 Follow up: Response: No adverse reaction cm10 14:36 Drug: foLIC Acid IVPB 1 mg IVPB once Route: IVPB; Site: right antecubital; cm10 14:38 Follow up: Response: No adverse reaction; IV Status: Completed infusion; IV Intake: cm10 0.2ml Medication: 12:51 VIS not applicable for this client. cm10 Intake: 14:38 IV: 0ml; Total: 0ml. cm10 15:33 IV: 1000ml; Total: 1000ml. cm10 Outcome: 14:22 Discharge ordered by . kinjal 15:34 Discharged to home ambulatory, with family, cm10 15:34 Condition: good 15:34 Discharge instructions given to patient, Instructed on discharge instructions, follow up and referral plans. medication usage, Demonstrated understanding of instructions, follow-up care, medications, Prescriptions given X 2, 15:35 Patient left the ED. cm10 NIH Stroke Scale - NIH Stroke Score Date: 06/17/2024 Time: 13:08 Total Score = 0 10. Dysarthria (speech clarity - read or repeat words) - 0(Normal) 11. Extinction and Inattention (visual/tactile/auditory/spatial/personal) - 0(No abnormality) 1a. Level of Consciousness (LOC) - 0(Alert) 1b. Level of Consciousness (LOC) (Month \T\ Age) - 0(Both) 1c. LOC Commands (Open \T\ Closes Eyes/Pitching Coach) - 0(Both) 2. Best Gaze (Lateral Gaze Paresis) - 0(Normal) 3. Visual Field Loss - 0(No visual loss) 4. Facial Palsy - 0(Normal) 5a. Left Arm: Motor (10-second hold) - 0(No drift) 5b. Right Arm: Motor (10-second hold) - 0(No drift) 6a. Left Leg: Motor (5-second hold - always test supine) - 0(No drift) 6b. Right Leg: Motor (5-second hold - always test supine) - 0(No drift) 7. Limb Ataxia (finger/nose \T\ heel/cary - test with eyes open) - 0(Absent) 8. Sensory Loss (pinprick arms/legs/face) - 0(Normal) 9. Best Language: Aphasia (description/naming/reading) - 0(No aphasia) Initials: kinjal Signatures: Dispatcher [employer] Raghu Pierce MD MD cha Wilkerson, Felisa Levy, RN RN mb9 Yany Urena RN RN cm10 Grisel De Leon6
--- NOTE | 2024-06-17 14:24 | EDPHYS ---
Physician Documentation [facility] Name: Rosa Mcclure Age: 34 yrs Sex: Female : 1990 Arrival Date: 06/17/2024 Time: 12:35 Bed 6 Private MD: GARCIA Physician Raghu Klein HPI: 06/17 13:08 This 34 yrs old Female presents to ER via Ambulatory with complaints of kinjal Headache, Numbness Of Face. 13:08 The patient complains of pain to the forehead. The patient describes the headache as kinjal aching. Onset: The symptoms/episode began/occurred 1 day(s) ago. Associated signs and symptoms: The patient has no apparent associated signs or symptoms. Severity of symptoms: At its worst the pain was mild, in the emergency department the pain is unchanged. Headache History: Denies prior headaches. The symptoms are alleviated by nothing. the symptoms are aggravated by nothing. The patient has not experienced similar symptoms in the past. 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 - Infectious Disease History:: Denies. - Social history:: Smoking status: Patient denies any tobacco usage or history of. - Family history:: not pertinent. ROS: 13:08 Constitutional: Negative for fever, chills, and weight loss, Eyes: Negative for injury, kinjal pain, redness, and discharge, ENT: Negative for injury, pain, and discharge, Neck: Negative for injury, pain, and swelling, Cardiovascular: Negative for chest pain, palpitations, and edema, Respiratory: Negative for shortness of breath, cough, wheezing, and pleuritic chest pain, Abdomen/GI: Negative for abdominal pain, nausea, vomiting, diarrhea, and constipation, Back: Negative for injury and pain, : Negative for injury, bleeding, discharge, and swelling, MS/Extremity: Negative for injury and deformity, Skin: Negative for injury, rash, and discoloration, Neuro: Negative for headache, weakness, numbness, tingling, and seizure, Psych: Negative for depression, anxiety, suicide ideation, homicidal ideation, and hallucinations, Allergy/Immunology: Negative for hives, rash, and allergies, Endocrine: Negative for neck swelling, polydipsia, polyuria, polyphagia, and marked weight changes, Hematologic/Lymphatic: Negative for swollen nodes, abnormal bleeding, and unusual bruising, Exam: 13:08 Constitutional: This is a well developed, well nourished patient who is awake, alert, kinjal and in no acute distress. Head/Face: Normocephalic, atraumatic. Eyes: Pupils equal round and reactive to light, extra-ocular motions intact. Lids and lashes normal. Conjunctiva and sclera are non-icteric and not injected. Cornea within normal limits. Periorbital areas with no swelling, redness, or edema. ENT: Nares patent. No nasal discharge, no septal abnormalities noted. Tympanic membranes are normal and external auditory canals are clear. Oropharynx with no redness, swelling, or masses, exudates, or evidence of obstruction, uvula midline. Mucous membranes moist. Neck: Trachea midline, no thyromegaly or masses palpated, and no cervical lymphadenopathy. Supple, full range of motion without nuchal rigidity, or vertebral point tenderness. No Meningismus. Chest/axilla: Normal chest wall appearance and motion. Nontender with no deformity. No lesions are appreciated. Cardiovascular: Regular rate and rhythm with a normal S1 and S2. No gallops, murmurs, or rubs. Normal PMI, no JVD. No pulse deficits. Respiratory: Lungs have equal breath sounds bilaterally, clear to auscultation and percussion. No rales, rhonchi or wheezes noted. No increased work of breathing, no retractions or nasal flaring. Abdomen/GI: Soft, non-tender, with normal bowel sounds. No distension or tympany. No guarding or rebound. No evidence of tenderness throughout. Back: No spinal tenderness. No costovertebral tenderness. Full range of motion. Skin: Warm, dry with normal turgor. Normal color with no rashes, no lesions, and no evidence of cellulitis. MS/ Extremity: Pulses equal, no cyanosis. Neurovascular intact. Full, normal range of motion., bilateral aka Neuro: Awake and alert, GCS 15, oriented to person, place, time, and situation. Cranial nerves II-XII grossly intact. Motor strength 5/5 in all extremities. Sensory grossly intact. Cerebellar exam normal. Normal gait. Psych: Awake, alert, with orientation to person, place and time. Behavior, mood, and affect are within normal limits. 13:08 ECG was reviewed by the Attending Physician. 13:08 Neuro: Orientation: is normal, appropriate for stated age, no acute changes, Mentation: is normal, appropriate for stated age, no acute changes, Memory: is normal, appropriate for stated age, no acute changes, Cranial nerves: grossly normal, is grossly normal based on the patient's age, no acute changes, Cerebellar function: is grossly normal, is grossly normal based on the patient's age, no acute changes, Motor: is normal, Sensation: is normal, no obvious gross deficits, appropriate Gait: not applicable Deep tendon reflexes are 2+ (normal) in the bilateral brachioradialis, bicep, tricep and patellar and Achilles tendons, Babinski testing is normal, seizure activity, is not displayed by the patient, 13:27 ECG was reviewed by the Attending Physician. [facility] Vital Signs: 12:48 BP 148 / 71; Pulse 66; Resp 16; Temp 97.8; Pulse Ox 100% on R/A; Weight 81.65 kg; cm10 Height 5 ft. 3 in. ; Pain 9/10; 14:38 BP 104 / 66; Pulse 54; Resp 15; Pulse Ox 100% ; cm10 15:00 BP 113 / 70; Pulse 48; Resp 15; Pulse Ox 100% ; cm10 12:48 Body Mass Index 31.89 (81.65 kg, 160.02 cm) cm10 12:48 Pain Scale: Adult cm10 NIH Stroke Scale Scores: 13:08 NIHSS Score: 0 kinjal Abdulaziz Coma Score: 13:12 Eye Response: spontaneous(4). Motor Response: obeys commands(6). Verbal Response: kinjal oriented(5). Total: 15. MDM: 12:46 Medical Screening Exam initiated kinjal 13:12 Differential diagnosis: cluster headache, cerebral vascular accident, hypertensive kinjal headache, hyponatremia, migraine, neoplasm, otitis, subarachnoid bleed, tension headache. Data reviewed: vital signs, nurses notes, lab test result(s), EKG, radiologic studies, CT scan. Consideration of Admission/Observation Escalation of care including admission/observation considered. I considered the following discharge prescriptions or medication management in the emergency department Medications were administered in the Emergency Department. See MAR. Independent interpretation of the following test(s) in the Emergency Department EKG: See my EKG interpretation above. Test considered but Not performed: MRI: NO MRI BRAIN. 06/17 12:56 Order name: Basic Metabolic Panel; Complete Time: 14:20 [facility] 06/17 12:56 Order name: CBC with Diff; Complete Time: 14:20 [facility] 06/17 12:56 Order name: D-Dimer; Complete Time: 14:20 [facility] 06/17 12:56 Order name: LFT's; Complete Time: 14:20 [facility] 06/17 12:56 Order name: Magnesium; Complete Time: 14:20 [facility] 06/17 12:56 Order name: NT PRO-BNP; Complete Time: 14:20 [facility] 06/17 12:56 Order name: PT-INR; Complete Time: 14:20 [facility] 06/17 12:56 Order name: Troponin HS; Complete Time: 14:20 [facility] 06/17 12:56 Order name: CRP; Complete Time: 14:20 [facility] 06/17 12:58 Order name: UA Rfx Jim Cult if indicated; Complete Time: 14:20 [facility] 06/17 12:58 Order name: PREGU; Complete Time: 14:20 [facility] 06/17 13:32 Order name: Urine Culture [facility] 06/17 12:56 Order name: XRAY Chest (1 view) [facility] 06/17 12:56 Order name: CT Head Brain wo Cont; Complete Time: 14:20 [facility] 06/17 12:56 Order name: US Carotid Artery Bilateral [facility] 06/17 12:56 Order name: Cardiac monitoring; Complete Time: 13:21 [facility] 06/17 12:56 Order name: EKG - Nurse/Tech; Complete Time: 13:21 [facility] 06/17 12:56 Order name: IV Saline Lock; Complete Time: 12:56 [facility] 06/17 12:56 Order name: Labs collected and sent; Complete Time: 12:56 [facility] 06/17 12:56 Order name: O2 Per Protocol; Complete Time: 12:56 [facility] 06/17 12:56 Order name: O2 Sat Monitoring; Complete Time: 12:56 [facility] EC:27 Rate is 49 beats/min. Rhythm is regular. QRS [place] is Normal. GA interval is normal. QRS kinjal interval is normal. QT interval is normal. No Q waves. T waves are Normal. No ST changes noted. Clinical impression: Sinus bradycardia and No evidence of ischemia. Interpreted by me. Reviewed by me. Administered Medications: 13:21 Drug: NS 0.9% IV 1000 ml IV at 1 bolus Per protocol; to be given as a bolus over 60 cm10 minutes Route: IV; Rate: 1 bolus; Site: right antecubital; 15:33 Follow up: Response: No adverse reaction; IV Status: Completed infusion; IV Intake: cm10 1000ml 14:35 Drug: Ciprofloxacin PO 500 mg PO once Route: PO; cm10 15:33 Follow up: Response: No adverse reaction cm10 14:36 Drug: foLIC Acid IVPB 1 mg IVPB once Route: IVPB; Site: right antecubital; cm10 14:38 Follow up: Response: No adverse reaction; IV Status: Completed infusion; IV Intake: cm10 0.2ml Disposition Summary: 06/17/24 14:22 Discharge Ordered Notes: Location: Home kinjal Problem: new kinjal Symptoms: have improved kinjal Condition: Stable kinjal Diagnosis - Headache kinjal - Paresthesia of skin kinjal - Bradycardia, unspecified kinjal - UTI/ Urinary tract infection, site not specified kinjal Followup: kinjal - With: Private Physician - When: 2 - 3 days - Reason: Recheck today's complaints, Continuance of care, Re-evaluation by your physician Followup: kinjal - With: Jaime Olson MD - When: 2 - 3 days - Reason: Recheck today's complaints, Re-evaluation by your physician Discharge Instructions: - Discharge Summary Sheet kinjal - Bradycardia, Adult kinjal - General Headache Without Cause kinjal - Paresthesia kinjal - Urinary Tract Infection, Adult kinjal - Urinary Tract Infection, Adult, [id number] kinjal - Aspirin and Your Heart kinjal - General Headache Without Cause, [id number] kinjal - Paresthesia, [id number] kinjal Forms: - Medication Reconciliation Form kinjal - Antibiotic Education kinjal - Prescription Opioid Use kinjal - Patient Portal Instructions kinjal - Leadership Thank You Letter [facility] Prescriptions: - Cipro 250 mg Oral tablet - take 1 tablet ORAL route every 12 hours; 14 tablet; Refills: 0, Product kinjal Selection Permitted - Folic Acid 1 mg Oral Tablet - take 1 tablet ORAL route once daily; 30 tablet; Refills: 0, Product Selection kinjal Permitted NIH Stroke Scale - NIH Stroke Score Date: 06/17/2024 Time: 13:08 Total Score = 0 10. Dysarthria (speech clarity - read or repeat words) - 0(Normal) 11. Extinction and Inattention (visual/tactile/auditory/spatial/personal) - 0(No abnormality) 1a. Level of Consciousness (LOC) - 0(Alert) 1b. Level of Consciousness (LOC) (Month \T\ Age) - 0(Both) 1c. LOC Commands (Open \T\ Closes Eyes/Shirring Tender) - 0(Both) 2. Best Gaze (Lateral Gaze Paresis) - 0(Normal) 3. Visual Field Loss - 0(No visual loss) 4. Facial Palsy - 0(Normal) 5a. Left Arm: Motor (10-second hold) - 0(No drift) 5b. Right Arm: Motor (10-second hold) - 0(No drift) 6a. Left Leg: Motor (5-second hold - always test supine) - 0(No drift) 6b. Right Leg: Motor (5-second hold - always test supine) - 0(No drift) 7. Limb Ataxia (finger/nose \T\ heel/cary - test with eyes open) - 0(Absent) 8. Sensory Loss (pinprick arms/legs/face) - 0(Normal) 9. Best Language: Aphasia (description/naming/reading) - 0(No aphasia) Initials: kinjal Signatures: Dispatcher [employer] EDRaghu Vallejo MD MD cha Martinez, Clarissa RN RN cm10 Corrections: (The following items were deleted from the chart) 12:57 12:57 Head Brain Wo Cont+CT.RAD.BRZ ordered. EDMS EDMS 12:57 12:57 Carotid Artery Bilateral+US.RAD.BRZ ordered. EDMS EDMS
[2024-06-17] MEDS ORDERED: FOLIC ACID 5 MG/ML VIAL ONE (14:31)
[2024-06-17] MEDS ORDERED: CIPROFLOXACIN HCL 500 MG TAB ONE (14:31)
--- NOTE | 2024-06-17 14:37 | RAD REPORT ---
EXAMINATION: CAROTID DUPLEX ULTRASOUND CLINICAL INDICATION: NUMBNESS TECHNIQUE: Real-time grayscale, color flow and spectral Doppler sonographic images were obtained of t he extracranial carotid system using a linear transducer. COMPARISON: No prior exam. FINDINGS: RIGHT: Common carotid artery: 99 cm/s Internal carotid artery: 106 cm/s External carotid artery: 96 cm/s Right ICA/CCA ratio: 1.1 Plaque: Soft plaque right bulb, mild. Vertebral artery Antegrade LEFT: Common carotid artery: 93 cm/s Internal carotid artery: 125 cm/s External carotid artery: 115 cm/s Left ICA/CCA ratio: 1.3 Plaque: No significant plaquing seen. Vertebral artery Antegrade IMPRESSION: No hemodynamically significant stenosis (greater than 50%) within the extracranial internal carotid a rteries. Mild soft plaquing right carotid bulb. The degrees of stenosis, if any, are quantified according to the consensus statement of the Society o f Radiologists in Ultrasound (SRUS). Please refer to Jayesh E, Ismael C, Chito G et al. Carotid Artery Stenosis: Hudson-Scale and Doppler US Diagnosis--Society of Radiologists in Ultrasound Consensus Conference. Radiology. 2003;229(2):340-6.
--- NOTE | 2024-06-17 14:39 | RAD REPORT ---
EXAMINATION: ONE VIEW CHEST XR CLINICAL INDICATION: COUGH TECHNIQUE: Frontal chest projection is submitted. Examination is limited by patient positioning and t echnique. COMPARISON: 04/08/2024 FINDINGS: The lungs are well inflated and clear. Heart is mildly prominent in size. No displaced fractures iden tified. IMPRESSION: No acute intrathoracic abnormalities.
[2024-06-17 15:51] VITALS: TEMP 97.8; O2SAT 100
[2024-06-17 15:54] VITALS: BP 113/70
== END 2024-06-17 15:35 | disposition home or self-care (01) ==
LOC: ER 12:35
DX: R51.9 Headache, unspecified (principal); N39.0 Urinary tract infection, site not specified; R20.2 Paresthesia of skin; R00.1 Bradycardia, unspecified; I10 Essential (primary) hypertension
CPT/HCPCS: 96361; 93005; 87088; 85025; 81001; 87086; 80048; 36415; 83735; 81025; 85610; 85379; 80076; 87077; 87186; 84484; 83880; 86140; 70450; 71045; 93880; 96374; 99285; J7030